=== PATIENT | male | born 1955 | race Caucasian/White ===

== ENCOUNTER 2016-10-01 19:59 | Inpatient (IN) | payer OTHER ==
--- NOTE | ~2016-10-01 | DS ---
Discharge Summary [facility] [address] [place]. [address] NAME: YULISSA JAQUEZ : 51 STATUS : DIS IN PAT#: [id number] AGE: 61 ADM/REG DATE : 10/02/16 MR#: [id number] REPORT SERV DATE: 10/04/16 DICTATED BY: NOAH PEÑA DATE: 10/03/16 REPORT STATUS : Draft TRANSCRIBED BY: MODL DATE: 10/03/16 ADMISSION DATE: 10/02/2016 DISCHARGE DATE: 10/03/2016 This is a 61-year-old male, who was admitted to the emergency room with a five-day history of nausea, vomiting, diarrhea, and orthostatics symptoms. Upon coming to the emergency room, he was discovered to have an elevated troponin of 2.8, but the patient had no ST changes in his EKG in the emergency room and no chest pain. However he was admitted by Cardiology service due to the elevated troponin and there was some thought that perhaps he had some pulmonary edema in the emergency room. After Cardiology saw the patient, it became abundantly clear that the patient was not having any cardiac issues but rather having some sort of a GI viral infection that he was recovering from and no cardiac issues, so hospitalist service was consulted and took over primary care. DISCHARGE DIAGNOSES: 1. Nausea, vomiting, and diarrhea likely secondary to viral illness. 2. NSTEMI, elevated troponin secondary to viral illness, noncardiac. 3. Elevated transaminases secondary to viral illness. 4. Acute kidney injury on CKD secondary to dehydration, diarrhea, nausea, and vomiting. 5. Hypokalemia. 6. Hypertension. 7. Diabetes type 2 with A1c of 6.8. 8. Medication noncompliance. HOSPITAL COURSE: 1. Nausea, vomiting, and diarrhea. The patient has had no nausea, no vomiting, and no diarrhea since being admitted despite having on and off symptoms of this for 5 days prior to admission. 2. Elevated troponin. Again the patient had no EKG changes. No chest pain. This was noncardiac elevation of troponin secondary to probably type 2 demand ischemia related to his intractable nausea, vomiting, and diarrhea at home. 3. Elevated transaminases secondary to viral illness. The patient did have elevated AST and ALT, a normal bilirubin. His ALT was 234 on admission, trended down to 155. His AST was 102 and trended down to 51. His alkaline phosphatase was normal and again his total bilirubin was within normal limits. Since this was a new finding for him, we checked a liver ultrasound as he had a previous CT of the abdomen and pelvis that suggested some fatty infiltration of the liver. The liver ultrasound was negative showing no signs of cirrhosis or fatty liver. His transaminases would trend down and his hepatitis panel was negative. We also checked a CMV antibodies which are pending but again he is having no further symptoms and his rise in transaminases is likely secondary to his viral illness. 4. Also of note, a repeat chest x-ray had shown just some atelectasis, no pulmonary edema and no infiltrates. 5. Acute kidney injury on CKD. The patient was dehydrated on admission. IV fluid resuscitation was given and his creatinine trended down from 1.71 down to his baseline, around his baseline of 1.58. Discharge Summary [facility] [id number] [place]. [address] NAME: YULISSA JAQUEZ : 51 STATUS : DIS IN PAT#: [id number] AGE: 61 ADM/REG DATE : 10/02/16 MR#: [id number] REPORT SERV DATE: 10/04/16 DICTATED BY: NOAH PEÑA DATE: 10/03/16 REPORT STATUS : Draft TRANSCRIBED BY: EDA DATE: 10/03/16 6. Hypertension. The patient has medication noncompliance, has been not complying with a lot of his cardiac and blood pressure medications. We have restarted all of his home medications here at the hospital minus his home ARB and placed him on hydralazine instead. Blood pressure is much better controlled here after those were given. His initial blood pressures were quite high with systolic being 200. We will resume all of his home medications. He has been given new prescriptions, so he can refill his home medications. 7. Diabetes type 2. A1c is 6.8 despite having noncompliance with his cardiac medications. The patient, since May of last year, has had excellent compliance with his diabetes and his A1c was greater than 13 in May and in 4 months, has seen, I believe, Dr. Pickering, has been able to lower his A1c down to 6.8. No change will be made to his home regimen for diabetes. DISCHARGE CONDITION: Stable. DISCHARGE MEDICATIONS: 1. NovoLog FlexPen 18 units with meals at bedtime and sliding scale. 2. Lantus 50 units subcu at bedtime. 3. Victoza 1.2 mg subcu daily. 4. Atorvastatin 20 mg p.o. daily. 5. Aspirin 81 mg p.o. daily. 6. Spironolactone 25 mg p.o. b.i.d. 7. Vitamin D3 2000 units p.o. daily. 8. Zantac 150 mg p.o. daily. 9. Lofibra 160 mg p.o. daily. 10.Potassium chloride 20 mEq p.o. daily. 11.Norvasc 5 mg p.o. daily. 12.Coreg 6.25 mg p.o. b.i.d. 13.Irbesartan 300 mg p.o. daily. 14.Torsemide 20 mg p.o. daily. DISCHARGE PLAN: The patient will be discharged home. Follow up with primary care, Dr. Fernie Torres in the next one-to-two weeks. TDR/MODL Noah Peña APN / [id number] CC: Chang Guerrero M.D. Mark Thel, M.D.
--- NOTE | ~2016-10-01 | PRECARD ---
H&P [facility] [address] [place]. [address] NAME: LUAN JAQUEZ : 51 STATUS : ADM IN [facility]#: [id number] AGE: 61 ADM/REG DATE : 10/02/16 MR#: [id number] REPORT SERV DATE: 10/02/16 DICTATED BY: ALEJANDRA SOUZA DATE: 10/02/16 REPORT STATUS : Draft TRANSCRIBED BY: EDA DATE: 10/02/16 DATE OF ADMISSION: 10/02/2016 HISTORY: Mr. Luan Jaquez is a 61-year-old, gentleman, admitted through the emergency room with a 5-day history of nausea, vomiting, diarrhea, and orthostatic symptoms. Mr. Jaquez was doing well until about last Thursday. Then he developed severe nausea and vomiting. He has been unable to eat any solid foods since Thursday, that is 5 days ago. He has had recurrent diarrhea several times per day. He describes muscle aches and pains as well as subjective fever, though he has not taken his temperature at home. His family physician called an [id number] flu remedy without improvement. He reported to the emergency room and is admitted to Cardiology. On repeated questioning, Mr. Jaquez absolutely denies any chest discomfort. No orthopnea, PND. He denies palpitations. Again, he has had no chest discomfort whatsoever. He does have history of coronary artery disease, he had LAD stents several years ago. He also has hypertension, macular degeneration, diabetes, sleep apnea, proteinuria with atrial fibrillation. MEDICATIONS: Amlodipine, aspirin, atorvastatin, Tessalon, carvedilol, vitamin C, fenofibrate, insulin, irbesartan, Victoza, Glucophage, metformin, Tamiflu, potassium, Zantac, spironolactone, Demadex. SOCIAL HISTORY: Denies alcohol and tobacco. REVIEW OF SYSTEMS: Complete review of systems was obtained, pertinent negative and unremarkable except as noted above and below. All systems addressed. PHYSICAL EXAMINATION: VITAL SIGNS: Blood pressure is 198/88, temperature 96.9. GENERAL: The patient appears fatigued, tired with chills. HEENT: No xanthelasma; lips without cyanosis. LUNGS: Clear to auscultation, no wheezes, rales or rhonchi; good breath sounds. COR: No JVD or hepatojugular reflux, no murmurs, rubs or gallops, impulse mid clavicular line without carotid or abdominal bruits; normal S1 and S2. ABDOMEN: Bowel sounds positive, normal activity, without tenderness, masses or hepatosplenomegaly. EXTREMITIES: No edema, cyanosis. SKIN: Normal turgor. MS: Normal muscle strength, without kyphosis/scoliosis. NEURO/PSYCH: Alert and oriented times 4, no apparent anxiety or depression. LABORATORIES: White count 8.5, hematocrit 33.6, platelet count is 231,000. BUN 13, creatinine 1.7. LDL 67. ALT is elevated at 234. AST is elevated at 102. Lipase is [facility] [address] [address] NAME: LUAN JAQUEZ : 51 STATUS : ADM IN [facility]#: [id number] AGE: 61 ADM/REG DATE : 10/02/16 MR#: [id number] REPORT SERV DATE: 10/02/16 DICTATED BY: ALEJANDRA SOUZA DATE: 10/02/16 REPORT STATUS : Draft TRANSCRIBED BY: EDA DATE: 10/02/16 elevated at 70. Troponin is 2.8. Urine is cloudy with glucose of 150 with small amount of blood. EKG: Sinus rhythm with nonspecific ST-T wave changes. ASSESSMENT: Mr. Luan Jaquez is a 61-year-old gentleman, admitted with a 5-day history of nausea, vomiting, diarrhea, inability to eat any solid food for 5 days. He has absolutely no chest discomfort whatsoever, EKG shows no ischemia. His laboratories are remarkable for elevated AST, elevated ALT, elevated lipase with a troponin of 2.8. Again, he has had no chest discomfort at all. I do not think he has had myocardial infarction. In fact, I am not certain why the troponin-I was checked given his complete absence of any chest discomfort in his rather classic presentation of a viremia. PLAN: 1. IV hydration. 2. Address his diabetes control. 3. Adjust antihypertensive regimen. 4. Zofran for nausea. 5. We will check for influenza A as well. CONNIE/EDA Alejandra Souza M.D. / [id number] CC: Chang Cabrera M.D.
[~2016-10-01 19:59] MED LIST: ASAB PO; BYETTA10 SC; GLUCOPHAGE1000 MG PO; GLUCPH8 PO; HYZAAR 100/25 T1 TAB PO; HYZAAR1 TAB PO; L20 PO; LANTUS SC; LIPITOR10 PO; NORV5 PO; NOVOLOG SC; PLAVIX PO; PRIN10 PO; PRIN20 PO; ZOCOR10 PO; ZOCOR40 PO
[2016-10-01 23:03] LABS: BASOPHILS 0.8 %; BASOPHILS ABSOLUTE 0.07 10/3/uL (0.0-0.16); EOSINOPHILS ABSOLUTE 0.09 10/3/uL (0.0-0.53); ER CBC TAT 0 Hrs 12 Mins; HEMATOCRIT 35.4 % (40.0-51.0); HEMOGLOBIN 12.1 g/dL (13.6-17.8); IMMATURE GRANULOCYTES 0.2 %; IMMATURE GRANULOCYTES ABSOLUTE 0.02 10/3/uL (0.0-0.11); LYMPHOCYTES ABSOLUTE 1.74 10/3/uL (0.67-4.30); MANUAL DIFF NO %; MEAN CORPUS HGB CONC 34.2 g/dL (32.0-36.0); MEAN CORPUSCULAR HEMOGLOB 28.9 pg (26.0-34.0); MEAN CORPUSCULAR VOLUME 84.5 fL (80-100); MEAN PLATELET VOLUME 9.8 fL (9.2-13.0); MONOCYTES ABSOLUTE 0.87 10/3/uL (0.21-1.20); NEUTROPHILS ABSOLUTE 5.89 10/3/uL (2.02-8.40); PLATELET COUNT 224 10/3/uL (150-400); RBC DISTRIBUTION WIDTH 13.7 % (12.0-16.0); RED CELL COUNT 4.19 10/6/uL (4.7-6.1); WHITE BLOOD CELLS 8.7 10/3/uL (4.5-10.5)
[2016-10-01 23:09] LABS: ASCORBIC ACID (UR NOT ORDER) NEG (NEG); BILIRUBIN, URINE NEGATIVE (NEG); ER URINALYSIS TAT 0 Hrs 18 Mins; KETONE, URINE NEGATIVE (NEG); LEUKOCYTE ESTERASE(NOT OR NEG (NEG); NITRITE (URINE) NEG (NEG); WBC (NOT ORDERED) (RFLEX) 1 (0-5)
[2016-10-01 23:18] LABS: ALBUMIN 2.5 G/DL (3.5-5.0); CALCIUM, SERUM 8.3 MG/DL (8.5-10.4); CREATININE 1.71 MG/DL (0.70-1.30); GFR AFRICAN AMERICAN 48 ML/MIN (>=60); GFR NON AFRICAN AMERICAN 42 ML/MIN (>=60); POTASSIUM, SERUM 3.5 MMOL/L (3.5-5.3); SGOT(AST) 102 U/L (5-40); SGPT(ALT) 234 U/L (5-65); SODIUM, SERUM 142 MMOL/L (135-148); TOTAL BILIRUBIN 0.6 MG/DL (0-1.2)
[2016-10-01 23:19] LABS: A/G RATIO 0.6 (0.7-1.9); ALKALINE PHOSPHATASE 54 U/L (45-117); BUN (BLOOD UREA NITROGEN) 32 MG/DL (6-23); CHLORIDE, SERUM 106 MMOL/L (96-112); CO2 (CARBON DIOXIDE) 29 MMOL/L (24-34); GLOBULIN 4.5 G/DL (2.5-4.1); GLUCOSE, SERUM 178 MG/DL (60-99)
[2016-10-02 02:27] LABS: TROPONIN I 2.81 NG/ML (<0.05)
[2016-10-02 02:39] LABS: INTERNATIONAL NORMAL RATI 1.2 UNITS (-)
[2016-10-02 03:13] LABS: PROCALCITONIN 0.09 ng/mL (<0.5)
[2016-10-02 03:25] LABS: INFLUENZA A SCREEN NEGATIVE (NEGATIVE); INFLUENZA B SCREEN NEGATIVE (NEGATIVE)
[2016-10-02] MEDS ORDERED: TESSALON200 MG PO (03:25)
[2016-10-02] MEDS ORDERED: TAMIFLU PO (03:26)
[2016-10-02] MEDS ORDERED: NOVOPEN SC ×2 (03:27→03:30)
[2016-10-02] MEDS ORDERED: LANTUSCART SC (03:30)
[2016-10-02] MEDS ORDERED: VICTOZA18 MG/3 ML SC (03:30)
[2016-10-02] MEDS ORDERED: ASAB PO (03:31)
[2016-10-02] MEDS ORDERED: GLUCOPHAGE1000 MG PO ×2 (03:31→03:32)
[2016-10-02] MEDS ORDERED: SPIRO25 PO (03:31)
[2016-10-02] MEDS ORDERED: LIPITOR20 PO (03:31)
[2016-10-02] MEDS ORDERED: VITAMIN D31000 UNIT PO (03:32)
[2016-10-02] MEDS ORDERED: DEMA100 PO (03:33)
[2016-10-02] MEDS ORDERED: ZANTAC 150 PO (03:33)
[2016-10-02] MEDS ORDERED: KDUR20 PO (03:34)
[2016-10-02] MEDS ORDERED: LOFIBRA160 MG PO (03:34)
[2016-10-02] MEDS ORDERED: COREG6 PO (03:35)
[2016-10-02] MEDS ORDERED: NORV5 PO (03:35)
[2016-10-02] MEDS ORDERED: AVAPRO300 MG PO (03:37)
[2016-10-02 06:26] LABS: BASOPHILS 0.7 %; BASOPHILS ABSOLUTE 0.06 10/3/uL (0.0-0.16); EOSINOPHILS 1.5 %; EOSINOPHILS ABSOLUTE 0.13 10/3/uL (0.0-0.53); HEMATOCRIT 33.6 % (40.0-51.0); HEMOGLOBIN 11.8 g/dL (13.6-17.8); IMMATURE GRANULOCYTES 0.2 %; IMMATURE GRANULOCYTES ABSOLUTE 0.02 10/3/uL (0.0-0.11); LYMPHOCYTES ABSOLUTE 1.62 10/3/uL (0.67-4.30); MEAN CORPUS HGB CONC 35.1 g/dL (32.0-36.0); MEAN CORPUSCULAR HEMOGLOB 29.6 pg (26.0-34.0); MEAN CORPUSCULAR VOLUME 84.4 fL (80-100); MEAN PLATELET VOLUME 9.7 fL (9.2-13.0); MONOCYTES 9.4 %; NEUTROPHILS 69.2 %; NEUTROPHILS ABSOLUTE 5.88 10/3/uL (2.02-8.40); PLATELET COUNT 231 10/3/uL (150-400); RBC DISTRIBUTION WIDTH 13.8 % (12.0-16.0); RED CELL COUNT 3.98 10/6/uL (4.7-6.1); WHITE BLOOD CELLS 8.5 10/3/uL (4.5-10.5)
[2016-10-02 06:34] LABS: MANUAL DIFF NO %
[2016-10-02 06:41] LABS: CHOL/HDL RATIO(NOT ORDER) 3.6 (0-5)
[2016-10-02 07:57] LABS: TROPONIN I 2.64 NG/ML (<0.05)
[2016-10-03 05:08] LABS: BASOPHILS 1.1 %; BASOPHILS ABSOLUTE 0.08 10/3/uL (0.0-0.16); EOSINOPHILS 3.5 %; EOSINOPHILS ABSOLUTE 0.25 10/3/uL (0.0-0.53); HEMATOCRIT 32.2 % (40.0-51.0); HEMOGLOBIN 11.1 g/dL (13.6-17.8); IMMATURE GRANULOCYTES 0.1 %; IMMATURE GRANULOCYTES ABSOLUTE 0.01 10/3/uL (0.0-0.11); LYMPHOCYTES 22.4 %; MANUAL DIFF NO %; MEAN CORPUS HGB CONC 34.5 g/dL (32.0-36.0); MEAN CORPUSCULAR VOLUME 84.1 fL (80-100); MEAN PLATELET VOLUME 9.7 fL (9.2-13.0); MONOCYTES 11.5 %; MONOCYTES ABSOLUTE 0.82 10/3/uL (0.21-1.20); NEUTROPHILS 61.4 %; NEUTROPHILS ABSOLUTE 4.37 10/3/uL (2.02-8.40); PLATELET COUNT 226 10/3/uL (150-400); RBC DISTRIBUTION WIDTH 14.1 % (12.0-16.0); RED CELL COUNT 3.83 10/6/uL (4.7-6.1); WHITE BLOOD CELLS 7.1 10/3/uL (4.5-10.5)
[2016-10-03 05:22] LABS: A/G RATIO 0.6 (0.7-1.9); ALBUMIN 2.2 G/DL (3.5-5.0); ALKALINE PHOSPHATASE 58 U/L (45-117); CHLORIDE, SERUM 104 MMOL/L (96-112); CO2 (CARBON DIOXIDE) 29 MMOL/L (24-34); CREATININE 1.58 MG/DL (0.70-1.30); GFR AFRICAN AMERICAN 53 ML/MIN (>=60); GFR NON AFRICAN AMERICAN 46 ML/MIN (>=60); GLOBULIN 3.9 G/DL (2.5-4.1); POTASSIUM, SERUM 3.1 MMOL/L (3.5-5.3); SGOT(AST) 51 U/L (5-40); SGPT(ALT) 155 U/L (5-65); SODIUM, SERUM 140 MMOL/L (135-148); TOTAL BILIRUBIN 0.5 MG/DL (0-1.2); TOTAL PROTEIN 6.1 G/DL (6.0-8.5)
[2016-10-03 05:26] LABS: BUN (BLOOD UREA NITROGEN) 24 MG/DL (6-23); GLUCOSE, SERUM 97 MG/DL (60-99)
[2016-10-03 09:32] LABS: HEPATITIS C ANTIBODY NON-REACTIVE (NON-REACT)
[2016-10-03 09:33] LABS: HEPATITIS B CORE AB IGM NON-REACTIVE (NON-REAC)
[2016-10-03 09:34] LABS: HEP A ANTIBODY IGM NON-REACTIVE (NON-REACT)
[2016-10-03 09:48] LABS: HEPATITIS B SURFACE ANTIGEN NON-REACTIVE (NON-REACT)
[2016-10-03] MEDS ORDERED: FLONASE NAS (14:45)
[2016-10-03] MEDS ORDERED: LOFIBRA160 MG PO (14:47)
[2016-10-03] MEDS ORDERED: DEMA20 PO (14:47)
[2016-10-03] MEDS ORDERED: AVAPRO300 MG PO (14:48)
[2017-04-04] MEDS ORDERED: DEMA100 PO (17:10)
[2017-04-04] MEDS ORDERED: DEMA10T PO (17:11)
[2017-04-04] MEDS ORDERED: COREG12 PO (17:11)
[2017-04-04] MEDS ORDERED: LANTUS SC (17:11)
[2017-04-04] MEDS ORDERED: VITAMIN D1000 UNI1 PO (17:12)
[2017-04-04] MEDS ORDERED: ZANTAC 150 PO (17:12)
[2017-04-04] MEDS ORDERED: AVAP150 PO (17:12)
[2017-04-04] MEDS ORDERED: LIPITOR20 PO (17:13)
[2017-04-04] MEDS ORDERED: NORV5 PO (17:13)
[2017-04-04] MEDS ORDERED: MAALOX PO (17:13)
[2017-04-04] MEDS ORDERED: KDUR10 PO (17:14)
[2017-04-04] MEDS ORDERED: NOVOLOG SC ×2 (17:14)
[2017-04-04] MEDS ORDERED: HALF81 PO (17:16)
== END 2016-10-03 16:37 | disposition home or self-care (01) | DRG 683 ==
LOC: ER 19:59 → 7NO 10-02 03:10
PROVIDERS: Emergency Medicine; Nurse Practitioner Gerontology
DX: N17.9 Acute kidney failure, unspecified (principal); I24.8 Other forms of acute ischemic heart disease; E11.22 Type 2 diabetes mellitus with diabetic chronic kidney disease; B34.9 Viral infection, unspecified; E86.0 Dehydration; N18.9 Chronic kidney disease, unspecified; E87.6 Hypokalemia; R79.89 Other specified abnormal findings of blood chemistry; I12.9 Hypertensive chronic kidney disease with stage 1 through stage 4 chronic kidney disease, or unspecified chronic kidney disease; Z91.14 Patient's other noncompliance with medication regimen
CPT/HCPCS: 71010; 71020; 76705; 80053; 80061; 80074; 81001; 82962; 83036; 83690; 83735; 83880; 84145; 84460; 84484; 85025; 85610; 85730; 86644; 86645; 87040; 87804; 93005; 99285; A9270-GY; J0360; J1940; J2405